=== PATIENT | female | born 1990 | race Hispanic/Latino ===

== ENCOUNTER 2022-02-18 17:45 | Emergency (ER) | payer BC ==
[~2022-02-18] VITALS: Ht 157.5 cm; Wt 103.0 kg
[2022-02-18] MEDS ORDERED: IBUP-2070 PO (19:53)
[2022-02-18] MEDS ORDERED: PRED20TA3 PO (19:53)
[2022-02-18 19:59] VITALS: BP 126/77
== END 2022-02-18 20:06 | disposition home or self-care (01) ==
LOC: EDH 17:45
DX: M54.12 Radiculopathy, cervical region (principal)

== ENCOUNTER 2022-06-19 16:08 | Emergency (ER) | payer BC ==
[~2022-06-19] VITALS: Ht 157.5 cm; Wt 92.5 kg
[~2022-06-19 16:08] MED LIST: IBUP-2070 PO; PRED20TA3 PO
[2022-06-19 16:38] VITALS: BP 127/77
[2022-06-19] MEDS ORDERED: SULFAMETHOX-TMP DS 800/160 TAB PO SCH (18:00)
[2022-06-19] MEDS ORDERED: SULF1TAB42 PO (18:27)
[2022-06-19] MEDS ORDERED: IBUP-2070 PO (18:27)
[2022-06-19] MEDS ORDERED: MUPI22O TP (18:27)
== END 2022-06-19 18:40 | disposition home or self-care (01) ==
LOC: EDH 16:08
DX: N61.1 Abscess of the breast and nipple (principal); N61.0 Mastitis without abscess
CPT/HCPCS: 76642; 81025; 82948